=== PATIENT | female | born 1960 | race Caucasian/White ===

== ENCOUNTER 2019-12-20 09:21 | Emergency (ER) | payer SELFPAY ==
[2019-12-04 09:12] VITALS: BMI 30.4
[2019-12-20 09:22] VITALS: BP 158/109; PULSE 73; RESP 15; TEMP 36.2; O2SAT 98; BMI 31.7
--- NOTE | 2019-12-20 09:52 | ED.DCSUM_ITS ---
History of Present Illness Chief Complaint: Dizziness Informant: Patient Onset: Weeks Context: Sudden Onset Timing: Intermittent Narrative: Patient is a 59-year-old female presenting with recurrent vertigo. She states o n December 03 she developed vertigo. She was seen at urgent care where she was diagnosed with a sinus infection and started on meclizine. Patient states her symptoms had been improving however this morning when she rolled from her right to her left her symptoms significantly worsened. She states the entire room was spinning and she had some associated nausea. She did take meclizine prior to arrival but notes her symptoms are still present however milder. She notes he does feel that she has some more right-sided sinus and ear congestion today. She denies any other complaints at this time. Past Medical History - Allergies and Home Meds Allergies/Adverse Reactions: Allergies doxycycline Allergy (Verified 12/20/19 09:28) Other paroxetine [Paroxetine] Allergy (Verified 12/20/19 09:28) Other Sulfa (Sulfonamide Antibiotics) Allergy (Verified 12/20/19 09:28) Other sulfamethoxazole [From Bactrim] Allergy (Verified 12/20/19 09:28) Other trimethoprim [From Bactrim] Allergy (Verified 12/20/19 09:28) Other Primary Care Physician: Vamsi Reid MD [STAFF PHYSICIAN] - Beryl Chase [Primary Care Provider] - Past Medical History: - - Arthritis Surgical History: - - tubal ligation Smoking Status: Current some day smoker - Family History Maternal Family History: Family History (Last Reviewed 12/04/19 @ 09:11 by Dave Tyler) Other CVA (cerebral vascular accident) Dementia Diabetes Heart disease Hypertension Leukemia Family History: Reports: Diabetes, Hypertension, No pertinent history Review of Systems General: Denies: Chills, Fever, Sweats Eyes: Denies: Visual changes - bilaterally, Diplopia ENT: Denies: Rhinorrhea, Sore throat Cardiovascular: Denies: Chest pain, Palpitations Respiratory: Denies: Dyspnea, Cough, Dyspnea on exertion Gastrointestinal: Reports: Nausea. Denies: Abdominal pain, Vomiting, Diarrhea Genitourinary: Denies: Dysuria, Hematuria, Frequency Musculoskeletal: Denies: Back pain, Extremity Pain Skin: Denies: Rash, Wounds Neurological: Reports: - - Vertigo. Denies: Headache, Weakness, Numbness Physical Exam Vital Signs/Narrative: Vital Signs Temp Pulse Resp BP Pulse Ox 12/20/19 09:22 97.2 F L 73 15 158/109 H 98 Inital Vital Signs reviewed: Yes General: Well nourished, Well developed, No Acute Distress Head: Normocephalic, Atraumatic Eyes: Perrl, EOMI, - - Bilateral fatiguing horizontal nystagmus with rightward gaze, no rotary nystagmus or vertical nystagmus present ENT: Moist mucous membranes, No rhinorrhea, TM's clear - Mild dullness of the right TM compared to the left, -. Negative for: Nasal congestion, Sinus tenderness Neck: Supple, Nontender Cardiovascular: Regular rate, Regular rhythm, No murmurs Respiratory: No distress, CTA bilaterally, Chest nontender Abdomen: Soft, Nontender, Nondistended, Normal bowel sounds Back: Nontender, Normal Inspection Extremities: Nontender, No edema Skin: Normal color, No rash Neurological: Alert, Oriented x3, Cranial nerves II-XII grossly intact, Normal Strength, Normal Sensation, Normal Gait, - - No Truncal ataxia, normal finge r-to-nose Psychological: Normal affect, Normal Mood Diagnostic/Tx/Re-eval - Medical Decision Making She is evaluated for recurrent vertigo. Her presentation is very consistent with peripheral vertigo. Her symptoms are highly reproducible with head motion. She does not have any other findings concerning for central vertigo. Patient is given oral Valium in the ER as she has alreadytried meclizine at home with no relief. Patient is counseled on the Denise maneuver but states she does not want to try it in the ER now because her symptoms are still too bad. She is counseled that she likely needs follow-up with ENT but states it is difficult for her as she does not have insurance. Patient is also not willing to travel up to [place] with our ENT resident clinics. Patient is also instructed to start taking Flonase as this might help with the congestion with which is likely contributing to her vertigo. Patient is given a work note for today and the next 2 days per her request. She is given a short course of Valium to use if the meclizine is not helping. Patient is counseled on signs and symptoms requiring return to the emergency room. Patient verbalizes agreement and understand this plan. Patient discharged home in stable and improved condition. ED Disposition - Plan for ED Patient: Disposition: Home or Assisted Living Diagnosis: Peripheral vertigo Instructions: ED BPV Vertigo Prescriptions: Diazepam [Valium] 5 mg PO TID PRN 3 Days #10 tab PRN Reason: Vertigo Transmission Status: Received by [facility] Referrals: Beryl Chase [Primary Care Provider] - Vamsi Reid MD [STAFF PHYSICIAN] - Additional Instructions: Try to perform the Denise maneuver 3-4 times a day as tolerated. This should help with your recurrent vertigo. You may also start taking Flonase which is [id number] once a day in each nostril.
[2019-12-20] MEDS: diazePAM 5 MG Tablet PO (09:59)
== END 2019-12-20 10:01 | disposition home or self-care (01) ==
LOC: ED 10:01
PROVIDERS: Emergency Provider Emergency Medicine
DX: H81.399 Other peripheral vertigo, unspecified ear (principal); M19.90 Unspecified osteoarthritis, unspecified site; F17.210 Nicotine dependence, cigarettes, uncomplicated
CPT/HCPCS: 99283

== ENCOUNTER → 2021-04-24 10:51 | Outpatient (CLI) | payer MEDICAID, SELFPAY ==
[2021-04-24 11:32] LABS: Color, Urine Yellow (Yellow); Glucose, Dipstick 100 mg/dl (Normal); Ketone-Dipstick Negative (Negative); Leukocyte Esterase-Dipstick Negative /ul (Negative); Nitrite-Dipstick Negative (Negative); Occult Blood-Urine Negative /ul (Negative); Protein-Dipstick 30 mg/dl (Negative); Urine Bilirubin Dipstick Negative (Negative); Urine Clarity Clear (Clear); Urine Urobilinogen Normal (Normal)
[2021-04-24 11:36] LABS: Erythrocyte Sedimentation Rate 41 mm/hr (0-30)
[2021-04-24 11:37] LABS: Absolute Lymphocyte Count 3.26 X10^3/uL (0.83-4.51); Absolute Neutrophil Count 5.3 X10^3/uL (2.0-7.7); Basophil# 0.05 X10^3/uL; Basophil% 0.5 % (0-1); Eosinophils% 2.1 % (0-5); Hematocrit 45.7 % (37-47); Lymphocyte # 3.26 X10^3/ul (0.83-4.51); Lymphocyte % 34.6 % (19-41); Mean Corp Hgb Conc 32.8 g/dL (32-36); Mean Corpuscular Hgb 27.6 pg (27.0-32.0); Mean Corpuscular Volume 84.2 fL (81-99); Mean Platelet Vol. 11.1 fl (6.2-12.0); Monocyte# 0.58 X10^3/uL; Monocyte% 6.2 % (0-10); NRBC Flagged by Analyzer 0 % (0-5); Neutrophil % 56.2 % (47-70); Platelet Count 258 K/mm3 (150-450); RBC Distribution Width CV 12.5 % (11.6-14.6); RBC Distribution Width SD 38.1 fl (35.1-43.9); Red Blood Count 5.43 M/mm3 (4.2-5.4); White Blood Count 9.4 K/mm3 (4.4-11.0)
[2021-04-24 12:03] LABS: Vitamin B12 738 pg/mL (211-911)
[2021-04-24 12:51] LABS: ALB/GLOB Ratio 0.8 RATIO (0.9-2.4); AST(SGOT) 20 U/L (15-37); Alanine Aminotransfer ALT/SGPT 47 U/L (13-56); Albumin, Serum 3.6 g/dL (3.2-5.0); Alkaline Phosphatase 98 U/L (45-117); Anion Gap 8 (5-15); BUN 24 mg/dL (7-18); BUN/Creat Ratio 27.6 RATIO (10-20); Calcium,Total 9.6 mg/dL (8.5-10.1); Chloride 103 mmol/L (98-107); Cholesterol 336 mg/dL (200); Creatinine, Serum 0.87 mg/dL (0.55-1.02); EST Glomerular Filtration Rate 71 mL/min (>60); Est Glom Filt Rate - Afr Amer 86 mL/min (>60); Globulin 4.5 g/dL (2.2-4.2); Glucose 187 mg/dL (74-106); High Density Lipoprotein 46 mg/dL; Potassium 4.1 mmol/L (3.5-5.1); Protein, Total 8.1 g/dL (6.4-8.2); Rheumatoid Factor < 10.0 IU/mL (<15); Sodium Level 133 mmol/L (136-145); Triglycerides 603 mg/dL
[2021-04-27 13:33] LABS: Vitamin D 1,25-Dihydroxy 11.1 pg/mL (19.9-79.3)
[2021-04-27 13:58] LABS: ANTINUCLEAR ANTIBODIES DIRECT Negative (Negative)
== END ==
DX: R26.89 Other abnormalities of gait and mobility (principal); M54.5 Low back pain
CPT/HCPCS: 36415; 80053; 80061; 81002; 82607; 82652; 82746; 85025; 85652; 86038; 86431

== ENCOUNTER → 2021-05-01 15:57 | Outpatient (CLI) | payer MEDICAID, SELFPAY ==
--- NOTE | 2021-05-01 16:45 | MRI_ITS ---
EXAM: MR HEAD WITHOUT AND WITH INTRAVENOUS CONTRAST CLINICAL INDICATION: GAIT ABNORMALITY TECHNIQUE: Multiplanar and multisequence MR images of the brain were obtained without and with intravenous contrast. This report was created using [employer] report [employer] technology. CONTRAST: 17ml Dotarem via IV COMPARISON: CT head without contrast 02/11/2014. FINDINGS: BRAIN AND EXTRA-AXIAL SPACES: No diffusion restriction throughout the brain parenchyma. No focal signal abnormalities throughout the brain parenchyma in all of the pulse sequences. No abnormal enhancing lesions intraaxially and extra-axially. No intra- or extra-axial hemorrhage. No evidence of acute infarct. No intracranial mass or mass effect. There is preservation of the weldon/white matter interface. Posterior fossa structures are unremarkable. Ventricles are appropriate for age. No hydrocephalus. Basal cisterns are patent. SELLA: Unremarkable. Normal sella turcica, pituitary gland, infundibular stalk, optic chiasm and hypothalamus. AUDITORY SYSTEM: Unremarkable. The internal auditory canals are patent. BONES/JOINTS: Unremarkable. No discrete lytic or blastic abnormalities. SINUSES: Unremarkable as visualized. Clear. MASTOID AIR CELLS: Unremarkable as visualized. Clear. ORBITS: Unremarkable as visualized. Both globes, extraocular muscles, optic nerves and retrobulbar fat appear unremarkable. VASCULATURE: Unremarkable as visualized. Normal flow voids in the major intracranial circulation. MRI/Brain W/WO Contrast IMPRESSION: Normal MRI brain with and without intravenous contrast. Electronically Signed: Brian Gomez MD at 20:08 EDT , Service support ,
--- NOTE | 2021-05-01 17:30 | MRI_ITS ---
STUDY: MRI CERVICAL SPINE WITH AND WITHOUT CONTRAST REASON FOR EXAM: Female, 60 years old. GAIT ABNORMALITY TECHNIQUE: Standardized fat and water weighted pulse sequences were obtained in the sagittal and axial following administration of 17ml Dotarem via IV. COMPARISON: None FINDINGS: Normal foramen magnum and brainstem-cervical cord junction. Normal craniovertebral junction. Normal anterior atlantoaxial articulation. Normal odontoid process. There is straightening of the normal cervical lordosis. Minimal retrolisthesis at C4-5. Minimal anterolisthesis of C7-T1 Normal vertebral bodies and posterior osseous elements. C2-3: Normal endplates. Normal disc height, signal and morphology. Normal central canal and intervertebral neural foramina. C3-4: Normal endplates. Normal disc height, signal and morphology. Normal central canal and intervertebral neural foramina. C4-5: Normal endplates. Disc bulge and ligamentum flavum buckling with moderate spinal canal stenosis and minimal cord compression. No definite cord edema. Moderate right and mild left neural foraminal stenosis. C5-6: Normal endplates. Disc bulge and ligamentum flavum buckling with moderate spinal canal stenosis and cord compression. No definite cord edema. Moderate right and mild left neural foraminal stenosis. C6-7: Normal endplates. Disc bulge with mild mass effect on the ventral cord. Mild right neural foraminal stenosis. C7-T1: Normal endplates. Normal disc height, signal and morphology. Normal central canal and intervertebral neural foramina. Normal cervical cord. There is no demonstrated cervical cord syrinx cavity. Normal visualized soft tissue structures. No abnormal enhancement. MRI/Spine Cervical W/WO Contrast IMPRESSION: Disc bulge and mild to moderate cord compression at C4-5 and C5-6. Moderate right and mild left neural foraminal stenosis at C4-5 and C5-6. Electronically Signed: Aime Graves MD at 7:46 EDT Tel , Service support ,
== END ==
PROVIDERS: Visit Provider Nurse Practitioner Adult Health
DX: R26.89 Other abnormalities of gait and mobility (principal)
CPT/HCPCS: 70553; 72156; A9575

== ENCOUNTER → 2021-06-03 11:08 | Outpatient (CLI) | payer MEDICAID, SELFPAY ==
--- NOTE | 2021-06-03 11:20 | RAD_ITS ---
STUDY: X-RAY - RIGHT KNEE REASON FOR EXAM: Female, 60 years old. Pain. Evaluate for osteoarthritis. TECHNIQUE: 4 view(s) of the knee. COMPARISON: None. FINDINGS: Normal visualized distal femur. Normal visualized proximal tibia and fibula. Normal proximal tibiofibular articulation. Small superior patellar spur. Normal medial femorotibial compartment. Normal lateral femorotibial compartment. Lateral tilt and subluxation of the patella with mild thinning of the lateral patellofemoral compartment. The soft tissue structures are unremarkable. RAD/Knee 4 or More Views IMPRESSION: Small superior patellar spur. Lateral tilt and subluxation of the patella with mild thinning of the lateral patellofemoral compartment. No acute abnormality. Electronically Signed: Luis Carlos Mas MD at 12:48 EDT , Service support ,
== END ==
PROVIDERS: Referring Provider Nurse Practitioner Adult Health; Visit Provider Nurse Practitioner Adult Health
DX: M19.90 Unspecified osteoarthritis, unspecified site (principal)
CPT/HCPCS: 73564

== ENCOUNTER → 2021-07-08 13:43 | Outpatient (CLI) | payer MEDICAID, SELFPAY ==
--- NOTE | 2021-07-08 13:52 | RAD_ITS ---
STUDY: X-RAY - LUMBAR SPINE REASON FOR EXAM: Female, 60 years old. Back pain chronic LBP; RLE radiculopathy TECHNIQUE: XR Spine Lumbar 2 or 3 Views COMPARISON: None FINDINGS: Normal lumbar lordosis. There is no substantial scoliosis. There is a normal alignment of the vertebrae. There is multilevel endplate spondylosis of the lumbar vertebrae. There is multi-level degenerative disc disease with multi-level disc space narrowing. There are atherosclerotic vascular calcifications. The soft tissue structures are unremarkable. RAD/Lumbar Spine 2 or 3 Views IMPRESSION: Degenerative changes of the spine, as detailed above. Electronically Signed: Ethan Pelletier MD at 21:29 EST , Service support ,
== END ==
PROVIDERS: Referring Provider Nurse Practitioner Family; Visit Provider Nurse Practitioner Family
DX: M54.41 Lumbago with sciatica, right side (principal); G89.29 Other chronic pain
CPT/HCPCS: 72100

== ENCOUNTER 2021-08-27 13:00 | Outpatient (RCR) | payer MEDICAID, SELFPAY ==
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
== END 2021-08-27 19:00 | disposition home or self-care (01) ==
LOC: PT 13:00
PROVIDERS: Referring Provider Psychiatry & Neurology Neurology; Visit Provider Psychiatry & Neurology Neurology
DX: M54.2 Cervicalgia (principal); M54.50 Low back pain, unspecified
CPT/HCPCS: 97110; 97162; 97164; 97530

== ENCOUNTER → 2021-11-24 | Outpatient (CLI) | payer MEDICAID, SELFPAY ==
[2021-11-24 11:46] LABS: Absolute Lymphocyte Count 2.86 X10^3/uL (0.83-4.51); Basophil# 0.04 X10^3/uL; Basophil% 0.4 % (0-1); Eosinophil# 0.35 X10^3/uL; Eosinophils% 3.8 % (0-5); Hematocrit 44.4 % (37-47); Hemoglobin 14.2 g/dL (12.0-15.0); Lymphocyte # 2.86 X10^3/ul (0.83-4.51); Lymphocyte % 31.3 % (19-41); Mean Corpuscular Hgb 27.8 pg (27.0-32.0); Mean Corpuscular Volume 86.9 fL (81-99); Mean Platelet Vol. 11.3 fl (6.2-12.0); Monocyte# 0.86 X10^3/uL; Monocyte% 9.4 % (0-10); NRBC Flagged by Analyzer 0 % (0-5); Neutrophil # 5.02 X10^3/uL (2.7-7.7); Neutrophil % 54.9 % (47-70); Platelet Count 203 K/mm3 (150-450); RBC Distribution Width CV 13.1 % (11.6-14.6); RBC Distribution Width SD 41.6 fl (35.1-43.9); Red Blood Count 5.11 M/mm3 (4.2-5.4); White Blood Count 9.2 K/mm3 (4.4-11.0)
[2021-11-24 12:37] LABS: Vitamin D,25 Hydroxy 32.9 ng/mL
[2021-11-24 12:47] LABS: ALB/GLOB Ratio 0.9 RATIO (0.9-2.4); AST(SGOT) 57 U/L (15-37); Alanine Aminotransfer ALT/SGPT 102 U/L (13-56); Albumin, Serum 4.1 g/dL (3.2-5.0); Alkaline Phosphatase 107 U/L (45-117); Anion Gap 7 (5-15); BUN 25 mg/dL (7-18); BUN/Creat Ratio 14.4 RATIO (10-20); Calcium,Total 8.6 mg/dL (8.5-10.1); Chloride 103 mmol/L (98-107); Cholesterol 308 mg/dL (200); Creatinine, Serum 1.74 mg/dL (0.55-1.02); EST Glomerular Filtration Rate 32 mL/min (>60); Est Glom Filt Rate - Afr Amer 39 mL/min (>60); Globulin 4.4 g/dL (2.2-4.2); Glucose 97 mg/dL (74-106); High Density Lipoprotein 33 mg/dL; Potassium 4.4 mmol/L (3.5-5.1); Protein, Total 8.5 g/dL (6.4-8.2); Sodium Level 136 mmol/L (136-145); Thyroid Stim Hormone (TSH) 0.98 uIU/mL (0.358-3.74); Triglycerides 394 mg/dL; Very Low Density Lipoprotein 79 mg/dL (5-40)
== END | disposition home or self-care (01) ==
LOC: LAB 11:08
PROVIDERS: Referring Provider Nurse Practitioner Adult Health; Visit Provider Nurse Practitioner Adult Health
DX: E11.9 Type 2 diabetes mellitus without complications (principal)
CPT/HCPCS: 36415; 80053; 80061; 82306; 84443; 85025

== ENCOUNTER → 2021-11-26 | Outpatient (CLI) | payer MEDICAID, SELFPAY ==
[2021-11-26 12:54] LABS: Anion Gap 6 (5-15); BUN 29 mg/dL (7-18); BUN/Creat Ratio 17.5 RATIO (10-20); Calcium,Total 9.5 mg/dL (8.5-10.1); Chloride 104 mmol/L (98-107); Creatinine, Serum 1.66 mg/dL (0.55-1.02); EST Glomerular Filtration Rate 34 mL/min (>60); Est Glom Filt Rate - Afr Amer 41 mL/min (>60); Glucose 112 mg/dL (74-106); Potassium 5.1 mmol/L (3.5-5.1); Sodium Level 133 mmol/L (136-145)
== END | disposition home or self-care (01) ==
LOC: LAB 11:45
PROVIDERS: Referring Provider Nurse Practitioner Adult Health; Visit Provider Nurse Practitioner Adult Health
DX: N28.9 Disorder of kidney and ureter, unspecified (principal)
CPT/HCPCS: 36415; 80048

== ENCOUNTER → 2021-11-30 | Outpatient (CLI) | payer MEDICAID, SELFPAY ==
[2021-11-30 13:01] LABS: Anion Gap 6 (5-15); BUN 33 mg/dL (7-18); BUN/Creat Ratio 20.4 RATIO (10-20); Calcium,Total 9.2 mg/dL (8.5-10.1); Chloride 104 mmol/L (98-107); Creatinine, Serum 1.62 mg/dL (0.55-1.02); EST Glomerular Filtration Rate 35 mL/min (>60); Est Glom Filt Rate - Afr Amer 42 mL/min (>60); Glucose 101 mg/dL (74-106); Potassium 4.3 mmol/L (3.5-5.1); Sodium Level 134 mmol/L (136-145)
== END | disposition home or self-care (01) ==
DX: N28.9 Disorder of kidney and ureter, unspecified (principal)
CPT/HCPCS: 36415; 80048

== ENCOUNTER → 2021-12-21 | Outpatient (CLI) | payer MEDICAID, SELFPAY ==
[2021-12-21 12:37] LABS: Anion Gap 5 (5-15); BUN 22 mg/dL (7-18); BUN/Creat Ratio 15.9 RATIO (10-20); Calcium,Total 8.8 mg/dL (8.5-10.1); Chloride 103 mmol/L (98-107); Creatinine, Serum 1.38 mg/dL (0.55-1.02); EST Glomerular Filtration Rate 42 mL/min (>60); Est Glom Filt Rate - Afr Amer 50 mL/min (>60); Glucose 113 mg/dL (74-106); Potassium 4.8 mmol/L (3.5-5.1); Sodium Level 134 mmol/L (136-145)
== END | disposition home or self-care (01) ==
LOC: LAB 11:27
PROVIDERS: Referring Provider Nurse Practitioner Adult Health; Visit Provider Nurse Practitioner Adult Health
DX: N28.9 Disorder of kidney and ureter, unspecified (principal)
CPT/HCPCS: 36415; 80048

== ENCOUNTER 2022-01-08 08:43 | Outpatient (RCR) | payer MEDICAID, SELFPAY ==
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
--- NOTE | 2022-01-26 17:11 | HP.OTFCE.D ---
FCE D/C Summary - Discharge KIMBERLEY HONG was seen for a one time visit for an FCE on 01/08/22 and is discharged.
== END 2022-01-08 19:00 | disposition home or self-care (01) ==
LOC: OT 08:43
PROVIDERS: Referring Provider Nurse Practitioner Adult Health; Visit Provider Nurse Practitioner Adult Health
DX: M79.7 Fibromyalgia (principal); R26.89 Other abnormalities of gait and mobility
CPT/HCPCS: 97750

== ENCOUNTER → 2022-01-11 | Outpatient (CLI) | payer MEDICAID, SELFPAY ==
--- NOTE | 2022-01-11 12:08 | US_ITS ---
STUDY: RENAL ULTRASOUND - COMPLETE REASON FOR EXAM: Female, 61 years old. CKD TECHNIQUE: Ultrasound evaluation of the kidneys was performed with real-time and static wong-scale imaging. COMPARISON: None. FINDINGS: RIGHT KIDNEY: Normal location of the right kidney, which is normal in size. The right kidney measures 9.9 cm x 5.1 cm x 4.7 cm. There is a normal cortex of the right kidney. The renal cortex measures 1.1 cm. There is no right renal mass or cyst. There are no right renal calculi. There is no right hydronephrosis. DISTAL RIGHT URETER: There is non-visualization of the distal right ureter. There is no demonstrated right ureterovesical junction calculus. There is a visualized right ureteral jet. LEFT KIDNEY: Normal location of the left kidney, which is normal in size. The left kidney measures 10.4 cm x 4.7 cm x 4.9 cm. There is a normal cortex of the left kidney. The renal cortex measures 1.2 cm. There is no left renal mass or cyst. There are no left renal calculi. There is no left hydronephrosis. DISTAL LEFT URETER: There is non-visualization of the distal left ureter. There is no demonstrated left ureterovesical junction calculus. There is a visualized left ureteral jet. BLADDER: The distended urinary bladder has a volume of 295 ml. There is a normal wall thickness of the distended urinary bladder. There is no demonstrated mass within the urinary bladder. There are no demonstrated bladder calculi. US/Kidney and Bladder IMPRESSION: Normal ultrasound of the kidneys and urinary bladder. Electronically Signed: Freddy Staples MD at 15:22 EDT ,
[2022-01-11 14:13] LABS: Hematocrit 43.4 % (37-47); Hemoglobin 14.1 g/dL (12.0-15.0); Mean Corp Hgb Conc 32.5 g/dL (32-36); Mean Corpuscular Hgb 27.6 pg (27.0-32.0); Mean Corpuscular Volume 84.9 fL (81-99); Mean Platelet Vol. 11.9 fl (6.2-12.0); Platelet Count 226 K/mm3 (150-450); RBC Distribution Width CV 13.1 % (11.6-14.6); RBC Distribution Width SD 40.9 fl (35.1-43.9); Red Blood Count 5.11 M/mm3 (4.2-5.4); White Blood Count 8.8 K/mm3 (4.4-11.0)
[2022-01-11 14:38] LABS: Albumin, Serum 3.9 g/dL (3.2-5.0); BUN 25 mg/dL (7-18); BUN/Creat Ratio 15.9 RATIO (10-20); Calcium,Total 9.1 mg/dL (8.5-10.1); Chloride 104 mmol/L (98-107); Creatinine, Serum 1.57 mg/dL (0.55-1.02); EST Glomerular Filtration Rate 36 mL/min (>60); Est Glom Filt Rate - Afr Amer 43 mL/min (>60); Glucose 72 mg/dL (74-106); Phosphorus 2.4 mg/dL (2.5-4.9); Potassium 4.6 mmol/L (3.5-5.1); Protein, Urine (Random) 6.3 mg/dL (<11.9); Protein:Creat Ratio 254 mg/g CRE (0-200); Sodium Level 134 mmol/L (136-145)
[2022-01-11 14:39] LABS: PTHIN 32.8 pg/mL (18.4-80.1)
[2022-01-11 14:43] LABS: Vitamin D,25 Hydroxy 76.6 ng/mL
[2022-01-13 18:01] LABS: Anti-dsDNA Ab 4 IU/mL (0-9)
[2022-01-13 18:07] LABS: Cytoplasmic Ab (C-ANCA) <1:20 titer (Neg:<1:20); PROEL- Albumin 3.8 g/dL (2.9-4.4); PROEL- Alpha-1 Globulin 0.2 g/dL (0.0-0.4); PROEL- Beta Globulin 1.3 g/dL (0.7-1.3); PROEL- Gamma Globulin 1.3 g/dL (0.4-1.8); PROEL- Globulin, Total 3.8 g/dL (2.2-3.9); PROEL- TOTAL PROTEIN 7.6 g/dL (6.0-8.5)
[2022-01-14 14:04] LABS: Complement C3 199 mg/dL (82-167); Perinuclear Ab (P-ANCA) <1:20 titer (Neg:<1:20)
== END | disposition home or self-care (01) ==
PROVIDERS: Referring Provider Internal Medicine Nephrology; Visit Provider Internal Medicine Nephrology
DX: N18.32 Chronic kidney disease, stage 3b (principal)
CPT/HCPCS: 36415; 76770; 80069; 82306; 82570; 83970; 84156; 84165; 85027; 86160; 86225; 86256

== ENCOUNTER → 2022-03-09 | Outpatient (CLI) | payer MEDICAID, SELFPAY ==
--- NOTE | 2022-03-09 15:18 | RAD_ITS ---
STUDY: X-RAY - SACRUM/COCCYX REASON FOR EXAM: Female, 61 years old. PAIN TECHNIQUE: 3 view(s) of the sacrum and coccyx were obtained. COMPARISON: None. FINDINGS: There is degenerative arthrosis of the bilateral sacroiliac joints. Normal visualized sacral ala and fused sacral bodies. Normal sacrococcygeal junction with a normal angulation. Normal coccygeal segments. Degenerative changes of the lower lumbar spine. Bilateral tubal ligation clips calcified phleboliths. RAD/Sacrum-Coccyx min 2 Views IMPRESSION: Degenerative changes of the sacroiliac joints bilaterally. Electronically Signed: Freddy Staples MD at 15:44 EDT ,
== END | disposition home or self-care (01) ==
LOC: RAD 15:04
PROVIDERS: Referring Provider Nurse Practitioner Adult Health; Visit Provider Nurse Practitioner Adult Health
DX: M54.50 Low back pain, unspecified (principal)
CPT/HCPCS: 72220

== ENCOUNTER → 2022-03-23 | Outpatient (CLI) | payer MEDICAID, SELFPAY ==
[2022-03-23 10:25] LABS: Hematocrit 50.1 % (37-47); Hemoglobin 16.1 g/dL (12.0-15.0); Mean Corp Hgb Conc 32.1 g/dL (32-36); Mean Corpuscular Hgb 26.3 pg (27.0-32.0); Mean Corpuscular Volume 81.7 fL (81-99); Mean Platelet Vol. 11.1 fl (6.2-12.0); Platelet Count 288 K/mm3 (150-450); RBC Distribution Width CV 13.3 % (11.6-14.6); RBC Distribution Width SD 39.3 fl (35.1-43.9); Red Blood Count 6.13 M/mm3 (4.2-5.4); White Blood Count 12.9 K/mm3 (4.4-11.0)
[2022-03-23 10:49] LABS: Protein:Creat Ratio 286 mg/g CRE (0-200)
[2022-03-23 10:58] LABS: PTHIN 56.1 pg/mL (18.4-80.1)
[2022-03-23 11:01] LABS: Vitamin D,25 Hydroxy 96.4 ng/mL
[2022-03-23 11:03] LABS: BUN 13 mg/dL (7-18); BUN/Creat Ratio 9.4 RATIO (10-20); Calcium,Total 9.6 mg/dL (8.5-10.1); Chloride 100 mmol/L (98-107); Creatinine, Serum 1.39 mg/dL (0.55-1.02); EST Glomerular Filtration Rate 41 mL/min (>60); Est Glom Filt Rate - Afr Amer 50 mL/min (>60); Glucose 166 mg/dL (74-106); Phosphorus 3.4 mg/dL (2.5-4.9); Potassium 4.1 mmol/L (3.5-5.1); Sodium Level 133 mmol/L (136-145)
== END | disposition home or self-care (01) ==
PROVIDERS: Referring Provider Internal Medicine Nephrology; Visit Provider Internal Medicine Nephrology
DX: N18.32 Chronic kidney disease, stage 3b (principal); E55.9 Vitamin D deficiency, unspecified
CPT/HCPCS: 36415; 80069; 82306; 82570; 83970; 84156; 85027

== ENCOUNTER → 2022-06-04 | Outpatient (CLI) | payer MEDICAID, SELFPAY ==
--- NOTE | 2022-06-04 13:33 | MRI_ITS ---
STUDY: MRI LUMBAR SPINE WITHOUT CONTRAST REASON FOR EXAM: Female, 61 years old. RLE RADICULOPATHY, LOW BACK PAIN TECHNIQUE: Standardized fat and water weighted pulse sequences were obtained in the sagittal and axial planes. COMPARISON: Spine radiographs 07/08/2021. FINDINGS: T11-T12 and T12-L1: (Sagittal only). Normal endplates. Normal disc height, hydration and morphology. No ventral extradural defects. Normal central canal and bilateral intervertebral neural foramina. Normal lumbar lordosis. There is no substantial scoliosis. Normal conus medullaris that terminates at the mid L1 vertebral body level. L1-2: Normal endplates. Normal disc height, hydration and morphology. Normal bilateral facet joints. Normal central canal and bilateral lateral recesses. Normal bilateral intervertebral neural foramina. L2-3: Normal L2 inferior endplate. Schmorl''s node in the anterior L3 superior endplate. Normal disc height and morphology. Normal facet joints. Normal central canal and bilateral lateral recesses. Normal bilateral intervertebral neural foramina. L3-4: Normal endplates. Mild disc space height narrowing. Minimal degenerative retrolisthesis of L3 on L4. Mild bilateral degenerative facet arthropathy. Prominent dorsal epidural lipomatosis. Mild central canal stenosis with an AP canal diameter of 10 mm. Normal bilateral lateral recesses. Normal bilateral intervertebral neural foramina. L4-5: Normal endplates. Mild disc space narrowing. Mild degenerative anterolisthesis of L4 on L5. Moderate bilateral degenerative facet arthropathy. Moderate central canal stenosis with an apical diameter 7 mm. Normal bilateral lateral recesses. Normal bilateral intervertebral neural foramina. L5-S1: Normal endplates. Normal disc height, hydration and morphology. Mild bilateral degenerative facet arthropathy. Normal central canal and bilateral lateral recesses. Normal bilateral intervertebral neural foramina. Normal visualized sacral ala. Normal visualized paraspinous soft tissue structures. MRI/Spine Lumbar (Routine) IMPRESSION: 1. No MRI evidence of lumbar extruded disc fragment. 2. Moderate central canal stenosis at L4-L5 disc space level with an AP canal diameter of 7 mm, moderate bilateral degenerative facet arthropathy and mild degenerative anterolisthesis of L4 on L5. 3. Mild central canal stenosis at L3-L4 disc space level with an AP canal diameter of 10 mm, mild bilateral degenerative facet arthropathy and minimal degenerative retrolisthesis of L3 on L4. Electronically Signed: Brian Gomez MD at 16:09 EDT ,
== END | disposition home or self-care (01) ==
LOC: MRI 13:26
PROVIDERS: Referring Provider Anesthesiology Pain Medicine; Visit Provider Anesthesiology Pain Medicine
DX: M54.16 Radiculopathy, lumbar region (principal)
CPT/HCPCS: 72148

== ENCOUNTER → 2022-09-22 | Outpatient (CLI) | payer MEDICAID, SELFPAY ==
[2022-09-22 15:17] LABS: Bacteria 0 SEEN /hpf (None Seen); Mucous, Urine 0 SEEN /hpf (<or=2+); Red Blood Cells-Urine 0 SEEN /hpf (0-5)
[2022-09-22 15:25] LABS: Color, Urine Yellow (Yellow); Glucose, Dipstick 1000 mg/dl (Normal); Ketone-Dipstick Negative (Negative); Leukocyte Esterase-Dipstick 500 /ul (Negative); Nitrite-Dipstick Negative (Negative); Occult Blood-Urine 25 /ul (Negative); Protein-Dipstick 30 mg/dl (Negative); Specific Gravity, Urine 1.015 (1.002-1.030); Urine Bilirubin Dipstick Negative (Negative); Urine Clarity Clear (Clear); Urine Urobilinogen Normal (Normal)
[2022-09-22 15:30] LABS: Squamous Epithelial Cells - UA 0-5 SEEN /hpf (5-10); White Blood Cells >100 SEEN /hpf (0-5)
== END | disposition home or self-care (01) ==
LOC: LABSPEC 15:06
PROVIDERS: Referring Provider Physician Assistant; Visit Provider Physician Assistant
DX: R39.15 Urgency of urination (principal)
CPT/HCPCS: 81001; 87086; 87088

== ENCOUNTER → 2022-09-30 | Outpatient (CLI) | payer MEDICAID, SELFPAY ==
[2022-09-30 13:15] LABS: Anion Gap 8 (5-15); BUN 15 mg/dL (7-18); BUN/Creat Ratio 12.8 RATIO (10-20); Calcium,Total 8.9 mg/dL (8.5-10.1); Chloride 101 mmol/L (98-107); Creatinine, Serum 1.17 mg/dL (0.55-1.02); EST Glomerular Filtration Rate 50 mL/min (>60); Est Glom Filt Rate - Afr Amer 61 mL/min (>60); Glucose 141 mg/dL (74-106); Potassium 4.4 mmol/L (3.5-5.1); Sodium Level 138 mmol/L (136-145)
[2022-09-30 13:16] LABS: Protein, Urine (Random) 7.1 mg/dL (<11.9); Protein:Creat Ratio 176 mg/g CRE (0-200)
== END | disposition home or self-care (01) ==
LOC: LAB 12:07
PROVIDERS: Referring Provider Internal Medicine Nephrology; Visit Provider Internal Medicine Nephrology
DX: N18.32 Chronic kidney disease, stage 3b (principal)
CPT/HCPCS: 36415; 80048; 82570; 84156

== ENCOUNTER 2022-10-04 12:00 | Outpatient (RCR) | payer MEDICAID, SELFPAY ==
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
--- NOTE | 2022-10-04 12:34 | HP.PTDCSUM ---
It has been my pleasure to treat KIMBERLEY HONG referred by Dr. Franki Romero MD, with the diagnosis of BACK PAIN for a total of 7 visit(s). Discharge Date: Please see the following information for a summary of their discharge status. Subjective: PATIENT REPORTS HER HEP IS CHALLENGING AND SOMETIMES IS TOO MUCH AND CAUSES LBP. IN GENERAL, SHE REPORTS SHE CAN DO HER HEP APPROX 1X/DAY X 10 REPS EA BUT NO MORE. SEEMS THAT LAST TWO EX'S ADDED WERE TOO MUCH BECAUSE HOLDING BAND HURTS HER ARMS/NECK AND BENT LEG LIFTS CAUSE LBP. MY STOMACH MUSCLES ARE A LITTLE SORE BUT I KNOW THAT GOES WITH THE TERRITORY. LOW BACK Pain Intensity (Out of 10): 7 RIGHT LE Pain Intensity (Out of 10): 0 LEFT LE Pain Intensity (Out of 10): 0 % Improvement: 25 Objective/Function: THIS PATIENT AMBULATES INDEP'LY INTO PT TODAY WITHOUT ANY AD'S OR LOB BUT WITH SLOW CADANCE. UPON EXAM TODAY THERE ARE SOME SMALL IMPOVEMENTS SINCE INTIAL EVAL WITH TESTING AND PATIENT IS NOW INDEP WITH HEP BELOW BUT NOT TOLERATING FURTHER PROGRESSION WELL. INSTRUCTED PATIENT TO HOLD NEW EX'S FROM LAST VISIT AND WORK UP TO 3X10 OF OTHER EX'S SLOWLY TOLERATED OVER THE NEXT FEW MONTHS. PATIENT IS AGREEABLE. WE ARE GOING TO GO AHEAD AND DISCHARGE HER TO [facility] AT THIS TIME. Goal 1:: DECREASE C/O LOW BACK AND VIV LE SX'S Goal Progress: Not Progressing Goal 2:: IMPROVE PERSONAL CARE, LIFTING, WALKING, SITTING, STANDING, SLEEP, SOCIAL LIFE, TRAVEL AND HOMEMAKING FUNCTION. Goal Progress: Not Progressing Goal 3:: INSTRUCT IN PROPHYLAXIS Goal Progress: Goal Met Plan: *10 LB LIFTING LIMIT. POSTURE CORRECTION/STRENGTHENING, INSTRUCTION IN APPROPRIATE BODY MECHANICS AND ACTIVITY MODIFICATIONS. DLS STARTING WITH A NEUTRAL SPINE PROGRESSING ROM TOLERATED. VIV LE ROM, STRETCHING AND STRENGTHENING. HEP INSTRUCTION. If there are questions or concerns regarding this patient's physical therapy, please feel free to call me at [phone]. Thank you for the referral of this patient. Sincerely, Lana Moncada, PT, Cert MDT Balance/Gait/Functional tests - Balance/Special Test Scores Oswestry Low Back Score: 31 TUG Test Time Seconds: 14.90 Tug Test: <20 sec.=mostly independent 30 Second Chair Rise Test Seconds: 5
== END 2022-10-04 19:00 | disposition home or self-care (01) ==
LOC: PT 12:00
PROVIDERS: Referring Provider Anesthesiology Pain Medicine; Visit Provider Anesthesiology Pain Medicine
DX: M54.9 Dorsalgia, unspecified (principal)
CPT/HCPCS: 97110; 97112; 97162; 97164; 97530

== ENCOUNTER 2022-11-27 10:55 | Emergency (ER) | payer MEDICAID, SELFPAY ==
[2022-11-27 10:56] VITALS: BP 200/95; PULSE 87; RESP 16; TEMP 36.6; O2SAT 100; BMI 30.9
[2022-11-27 11:15] VITALS: BP 155/88
--- NOTE | 2022-11-27 11:24 | EX.ED.DYSGE1 ---
HPI <SOULEYMANE Bloom - Last Filed: 11/27/22 13:51> History of Present Illness Chief Complaint: Dizziness Narrative Narrative: Patient is a 61-year-old female with history of vertigo, chronic neck pain, chronic back pain, lumbar radiculopathy, fibromyalgia, tension headaches who presents to the emergency department for 3 days of generalized left-sided headache, a feeling of dizziness which she described as more of a lightheadedness, near syncopal. Patient states is worse when she changes position. She does have a long history of vertigo and states that this is not like her vertiginous episodes. She denies any new neck pain, new trauma, denies any fever or chills. Denies any new weakness to her upper or lower extremities. Denies any difficulty speaking PFS <SOULEYMANE Bloom - Last Filed: 11/27/22 13:51> [facility] Medical History Anemia Arthritis Liver disease Trigger thumb Urinary tract infection with hematuria Home Medications ezetimibe 10 mg tablet 10 mg PO DAILY 06/15/21 [History Last Taken Unknown] gabapentin 300 mg capsule 600 mg PO TID 06/29/21 [History Last Taken Unknown] guaifenesin 600 mg tablet, extended release 12 hr (Mucinex) 600 mg PO Q12H PRN Cough 06/29/21 [History Last Taken Unknown] empagliflozin 10 mg tablet 10 mg PO DAILY 08/18/21 [History Last Taken Unknown] metformin 500 mg tablet 1,000 mg PO DAILY 01/19/22 [History Last Taken Unknown] cholecalciferol (vitamin D3) 1,250 mcg (50,000 unit) capsule 1,250 mcg PO QMONTH 05/20/22 [History Last Taken Unknown] amitriptyline 100 mg tablet 100 mg PO QHS #30 tabs 09/23/22 [Rx Last Taken Unknown] cyclobenzaprine 10 mg tablet 10 mg PO TID PRN muscle spasm/pain #90 tabs 09/23/22 [Rx Last Taken Unknown] lidocaine-prilocaine 2.5 %-2.5 % topical cream 1 g topical .QID PRN pain #30 grams 09/23/22 [Rx Last Taken Unknown] Allergy/AdvReac Type Severity Reaction Status Date / Time doxycycline Allergy Other Verified 11/27/22 11:00 paroxetine [Paroxetine] Allergy Other Verified 11/27/22 11:00 Sulfa (Sulfonamide Allergy Other Verified 11/27/22 11:00 Antibiotics) sulfamethoxazole Allergy Other Verified 11/27/22 11:00 [From Bactrim] trimethoprim [From Bactrim] Allergy Other Verified 11/27/22 11:00 Family History Mother CVA (cerebral vascular accident) Other Dementia Diabetes Heart disease Hypertension Leukemia Surgical History History of tubal ligation Social History Smoking Status: Current some day smoker tobacco type: cigarettes Tobacco: How many years used: 20 Electronic Cigarette Use: not used second hand exposure: Yes quit status: has quit before alcohol intake: never substance use type: former substance user Date of last use: Used Marijuana in the past and marijuana what type of physical activity do you participate in: none 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 seatbelt use: sometimes ROS <SOULEYMANE Bloom - Last Filed: 11/27/22 13:51> ROS ED ROS Narrative Constitutional: Negative for fever, chills, weight loss, weakness Eyes: Negative for vision loss, vision change, double vision ENT: Negative for any sore throat, ear pain, congestion Cardiovascular: Negative for any chest pain, tightness, palpitations Respiratory: Negative for any cough, sputum production, hemoptysis, dyspnea, dyspnea on exertion, orthopnea Gastrointestinal: Negative for any abdominal pain, nausea, vomiting, diarrhea, constipation, blood in stool, blood in vomit : Negative for any urinary frequency, dysuria, retention, blood in urine Muscle skeletal: Negative for any muscle joint pain, stiffness, myalgias, arthralgias, neck pain, back pain Neurological: Negative for any syncope, numbness or tingling, dizziness. Positive for headache, feeling of near syncope, left-sided headache Skin: Negative for any rashes, lumps, itching, abrasions, lacerations Psychiatric: Negative for any depression, anxiety, stress, suicidal ideation, homicidal ideation Hematologic: Negative for any easy bruising, excessive bruising, easy bleeding Allergies: Negative for any eczema, hives, rash EXAM <SOULEYMANE Bloom - Last Filed: 11/27/22 13:51> Physical Exam Narrative Exam Narrative: Vital signs reviewed. HEET: Head normocephalic atraumatic, TMs clear bilaterally. Posterior pharynx is clear, moist mucous membranes. Nares clear bilaterally. Pupils are equal round reactive to light. During EOMs, there was slight horizontal nystagmus however this was less than 3 seconds. Patient did perform movement of the head this did not exacerbate any symptoms. Neck: Supple with no lymphadenopathy or tenderness. No signs of meningismus, negative jolt sign. Cardiac: Regular rate and rhythm no murmurs gallops or rubs, equal peripheral pulses bilaterally. I did perform orthostatic vital signs from laying to standing, they were negative. Patient's blood pressure is now 155/85. Heart rate remained in the 70s. Respiratory: Lungs clear to auscultation bilaterally. No chest tenderness. Abdomen: Soft, nontender, nondistended. No abdominal bruit or pulsatile masses. No hepatosplenomegaly Extremities: No peripheral edema, no signs of gross trauma or deformity. Active full range of motion of all extremities. Neuro: Cranial nerves II through XII intact, no focal neurological deficits. NIH stroke scale 0. Patient did have some weakness of the right leg, she states this is chronic and this is from her chronic back pain. Skin: Clean dry and intact with no rash, purpura, petechiae, vesicles or pustules. Backs/flank: No CVA tenderness, no midline spinal tenderness, no deformity. Psych: Normal mood and affect. No SI, HI or acute psychosis. Const Vital Signs: 11/27/22 10:56 11/27/22 11:15 Temperature 97.9 F Temperature Source Temporal Pulse Rate 87 Respiratory Rate 16 Blood Pressure 200/95 H 155/88 H Blood Pressure Mean 130 110 Pulse Ox 100 Oxygen Delivery Method Room Air <Dr. Ahmet Argueta DO - Last Filed: 11/27/22 13:12> Physical Exam Const Vital Signs: 11/27/22 10:56 11/27/22 11:15 Temperature 97.9 F Temperature Source Temporal Pulse Rate 87 Respiratory Rate 16 Blood Pressure 200/95 H 155/88 H Blood Pressure Mean 130 110 Pulse Ox 100 Oxygen Delivery Method Room Air MDM <SOULEYMANE Bloom - Last Filed: 11/27/22 13:51> MDM Lab Data Labs: Laboratory Results - last 24 hr 11/27/22 11/27/22 11/27/22 11:39 11:39 12:04 WBC 5.4 RBC 5.09 Hgb 13.6 Hct 43.2 MCV 84.9 MCH 26.7 L MCHC 31.5 L RDW Std Deviation 43.2 RDW Coeff of Rainer 14.0 Plt Count 190 MPV 10.3 Immature Gran % (Auto) 0.200 Neut % (Auto) 45.8 L Lymph % (Auto) 42.7 H [place] % (Auto) 8.1 Eos % (Auto) 2.6 Baso % (Auto) 0.6 Absolute Neuts (auto) 2.5 Absolute Lymphs (auto) 2.32 Nucleated RBC % 0 Sodium 137 Potassium 4.1 Chloride 110 H Carbon Dioxide 24.0 Anion Gap 3 L BUN 15 Creatinine 1.15 H Estim Creat Clear Calc 45.48 Est GFR (MDRD) Af Amer 62 Est GFR (MDRD) Non-Af 51 L BUN/Creatinine Ratio 13.0 Glucose 113 H Calcium 8.8 Troponin I High Sens 4 Urine Color Yellow Urine Clarity Clear Urine pH 6.0 Ur Specific [place] 1.015 Urine Protein 30 H Urine Glucose (UA) 1000 H Urine Ketones Negative Urine Occult Blood Negative Urine Nitrite Negative Urine Bilirubin Negative Urine Urobilinogen 1 H Ur Leukocyte Esterase 25 H Urine RBC 0 SEEN Urine WBC 0-5 SEEN Ur Squamous Epith Cells 0 SEEN Urine Bacteria 0 SEEN Urine Mucus 0 SEEN EKG Normal sinus rhythm: Attestation: I personally reviewed and interpreted this EKG as follows: Interpretation: Sinus Rhythm Comments: Normal sinus rhythm, rate 76 bpm, CT 162 ms, QRS duration 96 ms, no acute ST elevation, no acute infarct noted. Treatment and Re-Evaluation :: Patient appears generally well, patient appears nontoxic, vital signs are stable. Patient presents to the emergency department with complaints of left-sided headache, a feeling of dizziness which she described as more of a lightheadedness. Patient's physical examination was grossly unremarkable. Patient had no vertiginous symptoms. Elvi-Hallpike maneuver was completed and was negative. There is no evidence of any stroke. Patient alert and oriented acting appropriate. Patient did receive a work-up including a troponin secondary to the dizziness and elevated blood pressure when she arrived. Her blood pressure is now normalized. Patient CBC was unremarkable, patient's chemistries were unremarkable, initial troponin was 4. This is negative. EKG was unremarkable and negative for any ACS, HI. I did consider a CAT scan of the brain however secondary to a normal neurological exam, I do not believe this is necessary at this time. Patient's headache did decrease while the patient was here. I did perform orthostatic vital signs here, these were negative. On reassessment after 1 L of normal saline, the patient was feeling much better. She still had a headache, we used shared decision making, patient be given Reglan, Benadryl for a migraine-like cocktail. She will be reevaluated, if she feels better she will be discharged home. Patient is happy with the plan of care, all questions answered, there is no evidence of any other abnormality. Patient will follow closely with her PCP. Patient responded well to the migraine cocktail, she will be discharged. She will follow-up closely with her PCP. All questions answered <Dr. Ahmet Argueta, DO - Last Filed: 11/27/22 13:12> [facility] Narrative Medical decision making narrative: I have personally performed a face to face assessment of the patient and have reviewed the FLORENCIA Note. I performed a substantive portion of the visit including all aspects of the following. My garcia findings include: History: Patient presents with a headache and dizziness that has been getting worse over the past couple days. Patient states she has a history of migraine headaches. Patient states that her headache is diffuse. Patient states she feels lightheaded, like she is going to pass out. Patient states she also has a history of vertigo but states this is different than her vertigo. Patient denies any change of dizziness with position changes. Patient denies any paresthesias or weakness. Exam: Vital signs are stable. Patient is afebrile. Patient is in no acute distress. Pupils are equal, round, and reactive to light bilaterally. Extraocular muscles are intact. There is no nystagmus noted. Oral mucosa is pink and moist. Neck is supple. Trachea is midline. There is no JVD. Heart was regular rate and rhythm. Lungs are clear and equal bilaterally. Abdomen is soft. Bowel sounds are normal. There is no tenderness. There is no rebound or guarding noted. Cranial nerves II through XII are intact. There are no focal motor or sensory deficits noted. There is no tenderness over the calves. There is no edema noted. Medical Decision Making: Differential diagnosis includes migraine headache, vertigo, labyrinthitis, tension headache, cardiac dysrhythmia, cardiac ischemia, infection, and electrolyte abnormality. CBC will be obtained to assess for leukocytosis and anemia. Basic metabolic profile will be obtained to assess for electrolyte abnormality and renal function. EKG will be obtained to assess for cardiac dysrhythmia and cardiac ischemia. High-sensitivity troponin will be obtained to assess for cardiac ischemia. Urinalysis will be obtained to assess for urinary tract infection. CBC was reviewed and was within normal limits. Basic metabolic profile was reviewed and was essentially within normal limits. High-sensitivity troponin was reviewed and was normal. EKG was reviewed. On my independent interpretation, there is a normal sinus rhythm. There are no acute ST or T wave changes noted. Urinalysis was reviewed. There is no evidence of urinary tract infection or hematuria. Patient was given IV fluids and Zofran here. Patient states her nausea has improved but still has a headache. Patient was given Reglan and Benadryl. Patient was instructed to rest in a dark quiet room. Patient was instructed to follow-up with her primary care physician in 5 to 7 days. Patient understood and was agreeable with the plan. All questions were answered. Lab Data Attestation: I reviewed the patient's lab results. Labs: Laboratory Results - last 24 hr 11/27/22 11/27/22 11/27/22 11:39 11:39 12:04 WBC 5.4 RBC 5.09 Hgb 13.6 Hct 43.2 MCV 84.9 MCH 26.7 L MCHC 31.5 L RDW Std Deviation 43.2 RDW Coeff of Rainer 14.0 Plt Count 190 MPV 10.3 Immature Gran % (Auto) 0.200 Neut % (Auto) 45.8 L Lymph % (Auto) 42.7 H [place] % (Auto) 8.1 Eos % (Auto) 2.6 Baso % (Auto) 0.6 Absolute Neuts (auto) 2.5 Absolute Lymphs (auto) 2.32 Nucleated RBC % 0 Sodium 137 Potassium 4.1 Chloride 110 H Carbon Dioxide 24.0 Anion Gap 3 L BUN 15 Creatinine 1.15 H Estim Creat Clear Calc 45.48 Est GFR (MDRD) Af Amer 62 Est GFR (MDRD) Non-Af 51 L BUN/Creatinine Ratio 13.0 Glucose 113 H Calcium 8.8 Troponin I High Sens 4 Urine Color Yellow Urine Clarity Clear Urine pH 6.0 Ur Specific [place] 1.015 Urine Protein 30 H Urine Glucose (UA) 1000 H Urine Ketones Negative Urine Occult Blood Negative Urine Nitrite Negative Urine Bilirubin Negative Urine Urobilinogen 1 H Ur Leukocyte Esterase 25 H Urine RBC 0 SEEN Urine WBC 0-5 SEEN Ur Squamous Epith Cells 0 SEEN Urine Bacteria 0 SEEN Urine Mucus 0 SEEN Discharge Plan Triage Chief Complaint: Dizziness ED Midlevel Provider: Aime Logan ED Provider: Ahmet Argueta Dx/Rx/DC Orders Clinical Impression: Headache, Light-headed feeling Instructions: Self-Care for Headaches, Dizziness Fainting Causes Prescriptions: No Action ezetimibe 10 mg tablet 10 mg PO DAILY gabapentin 300 mg capsule 600 mg PO TID metformin 500 mg tablet 1,000 mg PO DAILY cholecalciferol (vitamin D3) 1,250 mcg (50,000 unit) capsule 1,250 mcg PO QMONTH guaifenesin [Mucinex] 600 mg tablet extended release 12hr 600 mg PO Q12H PRN (Reason: Cough) Jardiance 10 mg tablet 10 mg PO DAILY Label Comments: TAKE 1 TABLET EVERY MORNING amitriptyline 100 mg tablet 100 mg PO QHS Qty: 30 6RF cyclobenzaprine 10 mg tablet 10 mg PO TID PRN (Reason: muscle spasm/pain) Qty: 90 5RF lidocaine-prilocaine 2.5-2.5 % cream 1 g topical .QID PRN (Reason: pain) Qty: 30 5RF Primary Care Provider: [facility] Beryl Newman Referrals: [facility] Beryl Newman [Primary Care Provider] - Activity Restrictions/Additional Instructions: Please follow-up with your PCP. Of course return here for any worsening symptoms Disposition Disposition: Home, Self Care
[2022-11-27] MEDS: 0.9% Normal Saline 1,000 ML 1000 ML IV (11:45)
[2022-11-27] MEDS: Ondansetron 4 MG/2 ML Vial IV (11:46)
[2022-11-27 11:47] LABS: Absolute Lymphocyte Count 2.32 X10^3/uL (0.83-4.51); Absolute Neutrophil Count 2.5 X10^3/uL (2.0-7.7); Basophil# 0.03 X10^3/uL; Basophil% 0.6 % (0-1); Eosinophil# 0.14 X10^3/uL; Eosinophils% 2.6 % (0-5); Hematocrit 43.2 % (37-47); Hemoglobin 13.6 g/dL (12.0-15.0); Lymphocyte # 2.32 X10^3/ul (0.83-4.51); Lymphocyte % 42.7 % (19-41); Mean Corp Hgb Conc 31.5 g/dL (32-36); Mean Corpuscular Hgb 26.7 pg (27.0-32.0); Mean Corpuscular Volume 84.9 fL (81-99); Mean Platelet Vol. 10.3 fl (6.2-12.0); Monocyte# 0.44 X10^3/uL; Monocyte% 8.1 % (0-10); NRBC Flagged by Analyzer 0 % (0-5); Neutrophil # 2.49 X10^3/uL (2.7-7.7); Neutrophil % 45.8 % (47-70); Platelet Count 190 K/mm3 (150-450); RBC Distribution Width SD 43.2 fl (35.1-43.9); Red Blood Count 5.09 M/mm3 (4.2-5.4); White Blood Count 5.4 K/mm3 (4.4-11.0)
[2022-11-27 11:51] VITALS: BMI 31.9
[2022-11-27 12:01] LABS: Anion Gap 3 (5-15); BUN 15 mg/dL (7-18); Calcium,Total 8.8 mg/dL (8.5-10.1); Chloride 110 mmol/L (98-107); Creatinine, Serum 1.15 mg/dL (0.55-1.02); EST Glomerular Filtration Rate 51 mL/min (>60); Est Glom Filt Rate - Afr Amer 62 mL/min (>60); Estimated Creatinine Clearance 45.48 ml/min; Glucose 113 mg/dL (74-106); Potassium 4.1 mmol/L (3.5-5.1); Sodium Level 137 mmol/L (136-145); Troponin-I HS 4 pg/mL (3.0-54.0)
[2022-11-27 12:15] LABS: Bacteria 0 SEEN /hpf (None Seen); Mucous, Urine 0 SEEN /hpf (<or=2+); Red Blood Cells-Urine 0 SEEN /hpf (0-5); Squamous Epithelial Cells - UA 0 SEEN /hpf (5-10)
[2022-11-27 12:17] LABS: Color, Urine Yellow (Yellow); Glucose, Dipstick 1000 mg/dl (Normal); Ketone-Dipstick Negative (Negative); Leukocyte Esterase-Dipstick 25 /ul (Negative); Nitrite-Dipstick Negative (Negative); Occult Blood-Urine Negative /ul (Negative); Protein-Dipstick 30 mg/dl (Negative); Specific Gravity, Urine 1.015 (1.002-1.030); Urine Bilirubin Dipstick Negative (Negative); Urine Clarity Clear (Clear); Urine Urobilinogen 1 mg/dl (Normal)
[2022-11-27 12:35] LABS: White Blood Cells 0-5 SEEN /hpf (0-5)
[2022-11-27] MEDS: Metoclopramide 10 MG/2 ML Vial IV (12:55)
[2022-11-27] MEDS: DiphenhydrAMINE 50 MG/ML Syringe 25 MG IV (12:55)
== END 2022-11-27 13:25 | disposition home or self-care (01) ==
PROVIDERS: Nurse Practitioner; Emergency Provider Emergency Medicine; Visit Provider Emergency Medicine
DX: R51.9 Headache, unspecified (principal); F17.210 Nicotine dependence, cigarettes, uncomplicated; R42 Dizziness and giddiness
CPT/HCPCS: 80048; 81001; 84484; 85025; 93005; 96361; 96374; 96375; 99282; J7030; A4216; J2405

== ENCOUNTER → 2023-04-26 | Outpatient (CLI) | payer MEDICAID, SELFPAY ==
--- NOTE | 2023-04-26 16:13 | MRI_ITS ---
STUDY: MRI CERVICAL SPINE WITHOUT CONTRAST REASON FOR EXAM: Female, 62 years old. neck pain, bilat n/t shoulders,arms,hands TECHNIQUE: Standardized fat and water weighted pulse sequences were obtained in the sagittal and axial planes. COMPARISON: MRI cervical spine May 01, 2021 FINDINGS: Normal foramen magnum and brainstem-cervical cord junction. Normal craniovertebral junction. Normal anterior atlantoaxial articulation. Normal odontoid process. Decreased cervical lordosis. Normal vertebral bodies and posterior osseous elements. C2-3: Normal endplates. Normal disc height, signal and morphology. Normal central canal and intervertebral neural foramina. C3-4: Normal endplates. Normal disc height, signal and morphology. Normal central canal and intervertebral neural foramina. C4-5: Normal endplates. Narrowed disc space and mild bulging disc osteophyte complex.. Mild narrowing of the central canal.. Moderate to severe bilateral neural foraminal stenosis C5-6: Normal endplates. Narrowed disc space and mild bulging disc osteophyte complex.. Mild narrowing the central canal with impingement upon the ventral surface of the cord.. Moderate left neural foraminal stenosis and mild narrowing of the right. C6-7: Normal disc height and tiny central disc protrusion. Normal central canal and bilateral neuroforamina C7-T1: Normal endplates. Normal disc height, signal and morphology. Normal central canal and intervertebral neural foramina. Normal cervical cord. Normal visualized soft tissue structures. No significant change since prior study MRI/Spine Cervical (Routine) IMPRESSION: Normal unenhanced MR examination of the cervical spine. Electronically Signed: Cresencio Martin MD at 18:25 EDT ,
== END | disposition home or self-care (01) ==
LOC: MRI 15:55
PROVIDERS: Referring Provider Orthopaedic Surgery; Visit Provider Orthopaedic Surgery
DX: M50.30 Other cervical disc degeneration, unspecified cervical region (principal)
CPT/HCPCS: 72141

== ENCOUNTER → 2024-05-09 | Outpatient (CLI) | payer MEDICARE, MEDICAID, SELFPAY ==
[2024-05-09 12:57] LABS: Absolute Lymphocyte Count 2.54 X10^3/uL (0.83-4.51); Absolute Neutrophil Count 3.9 X10^3/uL (2.0-7.7); Basophil# 0.04 X10^3/uL; Basophil% 0.6 % (0-1); Eosinophil# 0.15 X10^3/uL; Eosinophils% 2.1 % (0-5); Hemoglobin 13.6 g/dL (12.0-15.0); Lymphocyte # 2.54 X10^3/ul (0.83-4.51); Mean Corp Hgb Conc 31.6 g/dL (32-36); Mean Corpuscular Hgb 25.5 pg (27.0-32.0); Mean Corpuscular Volume 80.7 fL (81-99); Mean Platelet Vol. 11.3 fl (6.2-12.0); Monocyte% 8.3 % (0-10); NRBC Flagged by Analyzer 0 % (0-5); Neutrophil # 3.91 X10^3/uL (2.7-7.7); Neutrophil % 53.7 % (47-70); Platelet Count 222 K/mm3 (150-450); RBC Distribution Width CV 13.8 % (11.6-14.6); RBC Distribution Width SD 40.1 fl (35.1-43.9); Red Blood Count 5.33 M/mm3 (4.2-5.4); White Blood Count 7.3 K/mm3 (4.4-11.0)
[2024-05-09 13:12] LABS: Vitamin D,25 Hydroxy 45.5 ng/mL
[2024-05-09 13:15] LABS: Microalbumin,Random Urine 13.9 mg/L (NO RANGE EST.)
[2024-05-09 13:39] LABS: AST(SGOT) 16 U/L (15-37); Alanine Aminotransfer ALT/SGPT 17 U/L (13-56); Albumin, Serum 4.1 g/dL (3.2-5.0); Alkaline Phosphatase 100 U/L (45-117); Anion Gap 8 (5-15); BUN 10 mg/dL (7-18); BUN/Creat Ratio 9.1 RATIO (10-20); Calcium,Total 9.4 mg/dL (8.5-10.1); Chloride 104 mmol/L (98-107); EST Glomerular Filtration Rate 54 mL/min (>60); Est Glom Filt Rate - Afr Amer 65 mL/min (>60); Globulin 4.3 g/dL (2.2-4.2); Glucose 76 mg/dL (74-106); Potassium 4.3 mmol/L (3.5-5.1); Protein, Total 8.4 g/dL (6.4-8.2); Sodium Level 135 mmol/L (136-145); Thyroid Stim Hormone (TSH) 0.992 uIU/mL (0.358-3.740)
== END | disposition home or self-care (01) ==
LOC: VSLAB 11:35
PROVIDERS: PCP Nurse Practitioner Family; Visit Provider Nurse Practitioner Family
DX: E11.9 Type 2 diabetes mellitus without complications (principal); E55.9 Vitamin D deficiency, unspecified; G43.909 Migraine, unspecified, not intractable, without status migrainosus
CPT/HCPCS: 36415; 80053; 82043; 82306; 84443; 85025

== ENCOUNTER → 2024-09-11 | Outpatient (CLI) | payer MEDICAID, MEDICARE, SELFPAY ==
[2024-09-11 14:35] LABS: Absolute Lymphocyte Count 2.33 X10^3/uL (0.83-4.51); Absolute Neutrophil Count 5.7 X10^3/uL (2.0-7.7); Basophil# 0.05 X10^3/uL; Basophil% 0.6 % (0-1); Eosinophils% 1.2 % (0-5); Hematocrit 40.7 % (37-47); Hemoglobin 13.1 g/dL (12.0-15.0); Lymphocyte # 2.33 X10^3/ul (0.83-4.51); Mean Corp Hgb Conc 32.2 g/dL (32-36); Mean Corpuscular Volume 80.8 fL (81-99); Mean Platelet Vol. 11.3 fl (6.2-12.0); Monocyte# 0.48 X10^3/uL; Monocyte% 5.6 % (0-10); NRBC Flagged by Analyzer 0 % (0-5); Neutrophil # 5.65 X10^3/uL (2.7-7.7); Neutrophil % 65.4 % (47-70); Platelet Count 219 K/mm3 (150-450); RBC Distribution Width CV 14.5 % (11.6-14.6); RBC Distribution Width SD 42.5 fl (35.1-43.9); Red Blood Count 5.04 M/mm3 (4.2-5.4); White Blood Count 8.6 K/mm3 (4.4-11.0)
[2024-09-11 14:49] LABS: Vitamin D,25 Hydroxy 65.4 ng/mL
[2024-09-11 14:57] LABS: ALB/GLOB Ratio 0.9 RATIO (0.9-2.4); AST(SGOT) 15 U/L (15-37); Alanine Aminotransfer ALT/SGPT 17 U/L (13-56); Albumin, Serum 3.8 g/dL (3.2-5.0); Alkaline Phosphatase 84 U/L (45-117); Anion Gap 7 (5-15); BUN 9 mg/dL (7-18); BUN/Creat Ratio 9.6 RATIO (10-20); Calcium,Total 9.2 mg/dL (8.5-10.1); Chloride 103 mmol/L (98-107); Cholesterol 252 mg/dL (200); Creatinine, Serum 0.94 mg/dL (0.55-1.02); EST Glomerular Filtration Rate 64 mL/min (>60); Est Glom Filt Rate - Afr Amer 78 mL/min (>60); Globulin 4.2 g/dL (2.2-4.2); Glucose 76 mg/dL (74-106); High Density Lipoprotein 57 mg/dL; Sodium Level 136 mmol/L (136-145); Triglycerides 212 mg/dL; Very Low Density Lipoprotein 42 mg/dL (5-40)
== END | disposition home or self-care (01) ==
PROVIDERS: PCP Nurse Practitioner Family; Visit Provider Nurse Practitioner Family
DX: E11.9 Type 2 diabetes mellitus without complications (principal); E55.9 Vitamin D deficiency, unspecified; G43.909 Migraine, unspecified, not intractable, without status migrainosus
CPT/HCPCS: 36415; 80053; 80061; 82306; 84443; 85025